=== PATIENT | female | born 1945 | race Caucasian/White ===

== ENCOUNTER 2020-11-08 13:55 | Emergency (ER) | payer MEDICARE, OTHER ==
[~2020-11-08 13:55] MED LIST: ASPIR-LOW81 MG PO; ATIVAN0.5 MG PO; AUGMENTIN 875-1 EACH PO; ELIQUIS 2.5 MG2.5 MG PO; ENTRESTO 24 MG1 EACH PO; ENULOSE10 GM/15 M PO; FLOVENT 44 MCG7.9 GM INH; FUROSEMIDE40 MG PO; INVANZ 1 GM VIAL1 GM IV; IPRAT-ALBUT 0.5-3 ML INH; K-TAB ER20 MEQ PO; LASIX 40 MG TAB40 MG PO; LIPITOR40 MG PO; LOPRESSOR 25 MG25 MG PO; LORTAB 7.5-3251 EACH PO; MEGESTROL ACETA40 MG PO; METOPROLOL SUCC25 MG PO; NEXIUM40 MG PO; PAXIL20 MG PO; PLAVIX 75 MG TA75 MG PO; POTASSIUM CHLO10 ME1 PO; PREDNISONE20 MG PO; SENNA-TIME S T1 EACH PO; SINGULAIR10 MG PO; STIOLTO RESPIMAT INH; STIOLTO RESPIMAT PO; VENTOLIN HFA 66.7 GM INH; VIBRAMYCIN100 MG PO; VITAMIN C 500500 MG PO; VITAMIN D3125 MCG PO; WELLBUTRIN XL150 MG PO
[2020-11-08 17:23] LABS: HEMOGLOBIN 12.2 gm/dl (12.3-15.3); RED BLOOD COUNT 3.92 M/UL (4.00-5.10); WHITE BLOOD COUNT 10.2 K/UL (4.5-11.0)
[2020-11-08 17:53] LABS: BUN/CREATININE RATIO 23 (0-10)
[2020-11-08] MEDS ORDERED: BUMETANIDE1 MG PO (18:12)
== END 2020-11-08 18:51 | disposition home or self-care (01) ==
LOC: ER1 13:55
PROVIDERS: Preventive Medicine Occupational Medicine
DX: S32.018A Other fracture of first lumbar vertebra, initial encounter for closed fracture (principal); I50.9 Heart failure, unspecified; J44.9 Chronic obstructive pulmonary disease, unspecified; Z79.899 Other long term (current) drug therapy; X58.XXXA Exposure to other specified factors, initial encounter; Z20.822 Contact with and (suspected) exposure to COVID-19
CPT/HCPCS: 36600; 71045; 72128; 72131; 80053; 82803; 83880; 85025; 85652; 93005; 96374; 99285; U0002